=== PATIENT | male | born 1980 | race Caucasian/White ===

== ENCOUNTER 2017-01-06 05:45 | Day surgery (SDC) | payer OTHER ==
[~2017-01-06] VITALS: Ht 180.3 cm; Wt 146.8 kg
--- NOTE | 2017-01-17 07:06 | OR ---
ADMIT: 01/06/2017 RM/LOC: [facility] MR#: [id number] [address] [id number] [address] [place] [address] Operative/Delivery Room Report SEX: M AGE: 36 : 1980 SURGERY DATE: 01/06/2017 SURGEON: Barrett Carpenter MD PREOPERATIVE DIAGNOSES: 1. Acute cholecystitis. 2. Cholelithiasis. POSTOPERATIVE DIAGNOSES: 1. Acute cholecystitis. 2. Cholelithiasis. PROCEDURE PERFORMED: Laparoscopic cholecystectomy with intraoperative cholangiogram. [employer] MECH[employer]IC: KAVON Dumont ANESTHESIA: General endotracheal. ESTIMATED BLOOD LOSS: Less than 20 mL. DESCRIPTION OF PROCEDURE: After appropriate informed consent was obtained, the patient was brought to the operating room. General endotracheal anesthesia was induced. The patient's abdomen was prepped and draped in sterile fashion. Small infraumbilical incision was created. Veress needle was introduced and the abdomen was insufflated with CO2. A 5-mm trocar was placed. Camera was introduced and the abdomen surveyed. He had no intraabdominal adhesions. He did have a very distended and inflamed-appearing gallbladder. Three additional ports were placed in the upper abdomen. The gallbladder was so tensely distended, it was difficult to even grab onto. I had to use a decompression needle to decompress the gallbladder. There was some thick black bile. With the gallbladder adequately decompressed, it was then grasped and retracted up over the edge of liver. He had a very fatty liver, so it was even difficult just to lift the gallbladder up over the liver. The infundibulum was really scarred into place, I had to peel some fat and peritoneum away from that. He had a very short cystic duct and numerous stones impacted in that cystic duct. I was able to dissect out a short length of the cystic duct right next to the gallbladder. A single clip was placed on the cystic duct on the gallbladder side. A small ductotomy was made. A little stone fragment that came out with that ductotomy. Cholangiogram catheter was introduced. Intraoperative cholangiogram was obtained. This was difficult though because the contrast kept leaking back out through my cystic duct opening. I did get just enough contrast to fill the right and left hepatic ducts and down in the common duct and then it did empty into the duodenum. There was no evidence of any filling defects. Again a very short length of cystic duct. The catheter was then removed. Three clips placed on cystic duct on the patient's side and the duct was cut between clips. The gallbladder was then reflected up and as I was doing this, I identified the cystic artery. This was also clipped and divided. This is a very edematous, ADMIT: 01/06/2017 RM/LOC: [facility] MR#: [id number] [address] [place] [id number] JUANJO SZYMANSKI, KAL [address] [place] [address] Operative/Delivery Room Report SEX: M AGE: 36 : 1980 thick-walled gallbladder, and the plane between the gallbladder and liver bed was very edematous and inflamed. Ultimately though, I got the gallbladder freed off the liver bed. It was placed in an EndoCatch bag and brought out through the subxiphoid port site. I had to make a pretty big incision in the skin and fascia in order to deliver this gallbladder out through the subxiphoid incision. The gallbladder removed, the trocar was reintroduced and the right upper quadrant copiously irrigated and suctioned out. The liver bed appeared hemostatic. All the wounds were infiltrated with Marcaine and the subxiphoid fascial defect was closed with two 0 Polysorb sutures. The abdomen was next desufflated, ports removed, skin closed with 4-0 Monocryl in the subcuticular layer. Sterile dressings were then applied. Bradly Perez assisted in entire procedure. His help was necessary for retraction and camera driving during this very difficult dissection. Barrett Carpenter MD/ juvenal JOB #: [id number] CC: Barrett Carpenter, Attending Physician FAMILY PHYSICIAN, Family Physician Raj Solo MD
== END 2017-01-06 14:05 | disposition home or self-care (01) ==
LOC: SSS 05:45
PROC: BF03YZZ Plain Radiography of Gallbladder and Bile Ducts using Other Contrast (ICD-10-PCS; principal; 2017-01-06)
PROC: 0FT44ZZ Resection of Gallbladder, Percutaneous Endoscopic Approach (ICD-10-PCS; principal; 2017-01-06)
DX: K80.12 Calculus of gallbladder with acute and chronic cholecystitis without obstruction (principal); K21.9 Gastro-esophageal reflux disease without esophagitis; E66.01 Morbid (severe) obesity due to excess calories; Z68.42 Body mass index [BMI] 45.0-49.9, adult; Z90.49 Acquired absence of other specified parts of digestive tract